=== PATIENT | female | born 1970 | race Two or more races ===

== ENCOUNTER 2018-05-24 05:59 | Inpatient (IN) | payer OTHER ==
[2018-05-24] VITALS (13 sets, daily range): BP systolic 117–155; BP diastolic 63–95
[~2018-05-24] VITALS: Ht 160 cm; Wt 80.3 kg
[~2018-05-24 05:59] MED LIST: AMITRIPTYLINE25 MG ORAL; EXCEDRIN MIGRA1 EAC1 PO; NARATRIPTAN HC2.5 MG ORAL
[2018-05-24] MEDS ORDERED: EPINEPHrine 1mg/1ml Amp ONE (06:58)
[2018-05-24] MEDS ORDERED: Thrombin 5000 units TOPIC ONE ×2 (06:59→07:00)
[2018-05-24] MEDS ORDERED: Bacitracin 50000 Units Vial ONE (06:59)
[2018-05-24] MEDS ORDERED: Gelfoam Size TOPIC ONE ×3 (06:59→07:02)
[2018-05-24] MEDS ORDERED: Bupivacaine 0.5% Inj 30 ml vial INJ ONE (06:59)
[2018-05-24] MEDS ORDERED: Thrombin 5000 units spray kit TOPIC ONE (07:01)
[2018-05-24] MEDS ORDERED: fentaNYL 100 mcg/2 mL IV ONE (07:05)
[2018-05-24] MEDS ORDERED: Midazolam 2mg/2ml Inj ONE (07:05)
[2018-05-24] MEDS ORDERED: Lidocaine 1% MPF 10mg/ml 5ml ONE (07:08)
[2018-05-24] MEDS ORDERED: Sodium Chloride 10ml vial INJ ONE (07:08)
[2018-05-24] MEDS ORDERED: Propofol 200mg/20ml IV ONE ×3 (07:08→10:04)
[2018-05-24] MEDS ORDERED: NS Irrig 1000ml ONE (07:30)
[2018-05-24] MEDS ORDERED: LR 1000ml ONE (07:30)
[2018-05-24] MEDS ORDERED: Zemuron 50mg/5ml Inj IV ONE (07:30)
[2018-05-24] MEDS ORDERED: Sterile Water Irrig 1000ml IRRIG ONE (07:30)
--- NOTE | 2018-05-24 07:35 | Pre-Procedure Note/Attestation ---
Pre-Procedure Note/Attestation Complete Prior to Procedure Planned Procedure: not applicable Procedure Narrative: C5-6 disc replacement vs fusion Indications for Procedure Pre-Operative Diagnosis: C5-6 disc Attestation I attest that I discussed the nature of the procedure; its benefits; risks and complications; and alternatives (and the risks and benefits of such alternatives ), prior to the procedure, with the patient (or the patient's legal herbicide service sales representative). I attest that, if there was a reasonable possibility of needing a blood transfusion, the patient (or the patient's legal herbicide service sales representative) was given the [facility] standardized written summary, pursuant to the Gt Mauricio Blood Safety Act ([place] Health and Safety Code # 1645, as amended). I attest that I re-evaluated the patient just prior to the surgery and that there has been no change in the patient's H&P, except as documented below: REBECCA COOMBS May 24, 2018 07:35
[2018-05-24] MEDS ORDERED: ePHEDrine 50mg/ml Inj ONE (08:10)
[2018-05-24] MEDS ORDERED: LR 1000ml 1,000 ML IVLG SCH (08:40)
[2018-05-24] MEDS ORDERED: LORazepam Inj 2mg/ml 1ml IV PRN (08:45)
[2018-05-24] MEDS ORDERED: Hydromorphone 0.5mg/0.5ml inj IVP PRN (08:45)
[2018-05-24] MEDS ORDERED: Meperidine 50mg/ml Inj(FOR RIGORS ONLY) IVP PRN (08:45)
[2018-05-24] MEDS ORDERED: DiphenhydrAMINE 50mg/ml Inj IVP PRN (08:45)
--- NOTE | 2018-05-24 08:48 | Anethesia Preoperative Eval ---
Anesthesia Pre-op PMH/ROS General Date of Evaluation: May 24, 2018 Time of Evaluation: 07:25 Anesthesiologist: Gabriel ASA Score: ASA 2 Mallampati Score Class I : Soft palate, uvula, fauces, pillars visible Class II: Soft palate, uvula, fauces visible Class III: Soft palate, base of uvula visible Class IV: Only hard plate visible Mallampati Classification: Class II Surgeon: Shahidaori Diagnosis: C5-6 disc herniation Surgical Procedure: C5-6 disc replacement Family History: no anesthesia problems Allergies: Coded Allergies: No Known Allergies (Unverified , 05/24/18) Medications: see eMAR Past Medical History Cardiovascular: Denies: HTN, CAD, PR, valve dz, arrhythmia, other Pulmonary: Denies: asthma, COPD, SHER, other Gastrointestinal/Genitourinary: Denies: GERD, CRI, ESRD, other Neurologic/Psychiatric: Reports: other - Migraine GOMES; Denies: dementia, CVA, depression/anxiety, TIA Endocrine: Denies: DM, hypothyroidism, steroids, other HEENT: Denies: cataract (L), cataract (R), glaucoma, [place] (L), [place] (R), other Hematology/Immune: Denies: anemia, DVT, bleeding disorder, other Musculoskeletal/Integumentary: Denies: OA, RA, DJD, DDD, edema, other PMH Narrative: Migraine GOMES PSxH Narrative: Bilateral shoulder scope Anesthesia Pre-op Phys. Exam Physician Exam Last Vital Signs Date Time Temp Pulse Resp B/P (MAP) Pulse Ox O2 Delivery O2 Flow Rate FiO2 05/24/18 06:32 Room Air 05/24/18 06:24 98.3 75 18 139/79 (99) 100 98.3 Constitutional: NAD Neurologic: CN 2-12 intact Cardiovascular: RRR, no M/R/G Respiratory: CTA Gastrointestinal: S/NT/ND Airway Exam Mallampati Score: Class II MO: full ROM: full Teeth: intact Anesthesia Pre-op A/P Labs WNL Urine Test Test 05/24/18 06:10 Urine HCG, Qualitative Negative (NEGATIVE) Studies Pre-op Studies: EKG - NSR Risk Assessment & Plan Assessment: 48 yo female with h/o migraine GOMES here for C5-6 disc replacement. Plan: GETA, SedLine Status Change Before Surgery: No Pre-Antibiotics Drug: Ancef Given Within 1 Hr of Incision: Yes Time Given: 07:50 Gt Rios MD May 24, 2018 08:48
--- NOTE | 2018-05-24 08:50 | Immediate Post-Op Evaluation ---
Immediate Post-Op Evalulation Immediate Post-Op Evalulation Procedure: C5-6 disc replacement Date of Evaluation: May 24, 2018 Time of Evaluation: 10:55 IV Fluids: 1350 Estimated Blood Loss: 50 Blood Pressure Systolic: 123 Blood Pressure Diastolic: 64 Pulse Rate: 85 Respiratory Rate: 15 O2 Sat by Pulse Oximetry: 100 Temperature (Fahrenheit): 97.1 Pain Score (1-10): 0 Nausea: No Vomiting: No Complications No complication Patient Status: reacts, patent, extubated, none Hydration Status: adequate Drug: Ancef Given Within 1 Hr of Incision: Yes Time Given: 07:50 Gt Rios MD May 24, 2018 08:50
--- NOTE | 2018-05-24 09:09 | Diagnostic Imaging Report ---
Indication: Preoperative evaluation Technique: XRAY Chest 1v Comparison: None Findings: Heart size and mediastinal contours are within normal limits for AP technique. There is no focal consolidation, pneumothorax or pleural effusion. Osseous structures demonstrate no acute abnormality. Impression: No radiographic evidence of acute cardiopulmonary disease.
--- NOTE | 2018-05-24 10:32 | Brief Operative Note ---
Immediate Post Operative Note Operative Note Chief Complaint: Neck and arm pain Pre-op Diagnosis: C5-6 disc hernia and pain Procedure: C5-6 disc replacement (Mobi-C) Post-op Diagnosis: same as pre-op Findings: consistent w/pre-op dx studies Surgeon: Cristian Whitley Report Developer: Yunier Howard Anesthesiologist: Gt Orourke Anesthesia: general Specimen: yes - disc Complications: none Condition: stable Fluids: per anesthesia Estimated Blood Loss: minimal Drains: none Implant(s) used?: Yes - REBECCA Martinez May 24, 2018 10:32
[2018-05-24] MEDS ORDERED: Hydromorphone 0.5mg/0.5ml inj SUBQ PRN (14:00)
[2018-05-24] MEDS ORDERED: Chloraseptic Spray 20mL Bottle ORAL PRN (14:30)
[2018-05-24] MEDS: ceFAZolin sod 1 GM in D5W 55 ML IV SCH ×2 (14:30→23:44)
--- NOTE | 2018-05-24 15:03 | Diagnostic Imaging Report ---
Indication: Neck pain Technique: 3 Intraoperative fluoroscopic images from spinal surgery. Operating surgeon: Gutierrez Total fluoroscopy time: 32.5 seconds Total fluoroscopy dose: 3.63 mGy Findings: Intraoperative fluoroscopic images submitted for archival the PACS. Initial image demonstrates an indwelling endotracheal tube. A surgical instrument is noted projecting over the C5-C6 disc space. Subsequent images demonstrate disc replacement at C5-C6. Impression: Intraoperative fluoroscopic imaging from spinal surgery. Please see operative report.
[2018-05-24] MEDS: Hydromorphone 0.5mg/0.5ml inj IVP PRN (16:31)
[2018-05-25] VITALS: BP 131/83
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
[2018-05-25] MEDS: Hydromorphone 0.5mg/0.5ml inj IVP PRN (03:31)
[2018-05-25 04:00] VITALS: BP 119/73
[2018-05-25 08:00] VITALS: BP 113/73
[2018-05-25] MEDS: ceFAZolin sod 1 GM in D5W 55 ML IV SCH (08:16)
[2018-05-25 09:00] VITALS: BP 113/73
--- NOTE | 2018-05-25 09:01 | 48 Hour Post Anesthesia Eval ---
Post Anesthesia Evaluation Procedure: C5-6 disc replacement Date of Evaluation: May 25, 2018 Time of Evaluation: 09:01 Blood Pressure Systolic: 113 0: 73 Pulse Rate: 74 Respiratory Rate: 20 Temperature (Fahrenheit): 99 O2 Sat by Pulse Oximetry: 98 Airway: patent Nausea: No Vomiting: No Pain Intensity: 3 Hydration Status: adequate Cardiopulmonary Status: Stable Mental Status/LOC: patient returned to baseline Follow-up Care/Observations: 0 Post-Anesthesia Complications: 0 Follow-up care needed: N/A Corey Pardo MD May 25, 2018 09:01
[2018-05-25 12:00] VITALS: BP 129/86
[2018-05-25] MEDS ORDERED: Hydromorphone 0.5mg/0.5ml inj SUBQ SCH (14:12)
[2018-05-25 16:00] VITALS: BP 131/88
[2018-05-25] MEDS ORDERED: Hydromorphone 0.5mg/0.5ml inj SUBQ PRN (17:00)
--- NOTE | 2018-05-25 17:30 | Progress Note ---
DATE: 05/25/2018 ACUTE PAIN MANAGEMENT PHYSICIAN PROGRESS NOTE MEDICATIONS: Medication administration record reviewed. Medications include IV fluids, Protonix, Elavil. P.r.n. medications include Chloraseptic spray, Dilaudid, Benadryl, Zofran, Fioricet, Phenergan, Mylanta. LABORATORY STUDIES: No interval laboratory studies. VITAL SIGNS: Within normal limits. Afebrile, pulse 99, respirations 20, blood pressure 129/86, and oxygen saturation 98% on room air. I spent over 60 minutes in consultation today. I saw the patient at the bedside with the charge nurse, ARTIE Gerard. I discussed the case with the nurse, Debbie, along with the charge nurse, ARTIE Gerard. I discussed the case with the surgeon, Dr. Whitley, along with physical therapist, Alexandr, who stated that the patient has been ambulating quite well in both her physical therapy sessions today. I saw the patient at the bedside. She is neurologically intact. She is swallowing, breathing, and phonating within normal limits. A soft collar remains in place and she appears non-toxic. She is alert and oriented x3. She has good motor strength throughout. Her is at the bedside providing good social support. The patient has been advancing her diet without any nausea symptoms. She has been tolerating using incentive spirometer for good pulmonary toilet. She denies shortness of breath or chest pain. The patient already has a supply of [place] at home from her recent shoulder surgery. I instructed the patient to contact Dr. Whitley's surgical clinic for further followup instructions and to schedule a followup outpatient clinic appointment. The feels comfortable caring for the patient at home. The Harmon catheter was removed earlier this morning and the patient has been voiding urine without any problems. With her normal vital signs and her improved physical therapy training, I see no contraindication for discharge trial home at this time. Heath Aparicio M.D. DR: Shane JOB#: [id number] CC:
--- NOTE | 2018-05-25 18:00 | Discharge Summary ---
DATE OF ADMISSION: 05/24/2018 DATE OF DISCHARGE: 05/25/2018 ATTENDING PHYSICIAN AND SURGEON: Miguel Whitley M.D. CONSULTING PHYSICIAN: Haeth Aparicio M.D., Pain Management. ADMITTING DIAGNOSIS: Cervical spine C5-C6 disc herniation with pain. POSTOPERATIVE DIAGNOSIS: Cervical spine C5-C6 disc herniation, status post C5-C6 cervical disc replacement. HOSPITAL COURSE: [facility]. Yesterday, she underwent uneventful cervical spine disc replacement surgery with Dr. Whitley in the operating room. She was transferred in stable condition to the recovery room, where she recovered well and was transferred in stable condition to the orthopedic floor. Serial monitoring was performed of neurologic function along with vital signs. The patient advanced her diet and ambulation without any adverse sequela. Her pain was adequately controlled and she was discharged to home in the care of her on postoperative day #1 after being cleared by physical therapy. The patient was instructed to follow up with Dr. Whitley's outpatient surgical clinic for followup. Heath Aparicio M.D. DR: CJ JOB#: [id number] CC:
== END 2018-05-25 16:30 | disposition home or self-care (01) | DRG 473 ==
LOC: SDSOVERFLO 05:59 → 3E 12:13
PROC: 01N10ZZ Release Cervical Nerve, Open Approach (ICD-10-PCS; principal; 2018-05-24 07:30)
PROC: 0RB30ZZ Excision of Cervical Vertebral Disc, Open Approach (ICD-10-PCS; principal; 2018-05-24 07:30)
PROC: 0RG10A0 Fusion of Cervical Vertebral Joint with Interbody Fusion Device, Anterior Approach, Anterior Column, Open Approach (ICD-10-PCS; principal; 2018-05-24 07:30)
DX: M50.222 Other cervical disc displacement at C5-C6 level (principal); M48.02 Spinal stenosis, cervical region; G89.18 Other acute postprocedural pain; V89.2XXS Person injured in unspecified motor-vehicle accident, traffic, sequela
CPT/HCPCS: 36415; 71045; 72040; 76001; 81025; 86850; 86900; 86901; 87081; 94003; 94150; J2250; J2405